=== PATIENT | female | born 1985 | race Caucasian/White ===

== ENCOUNTER 2017-08-10 14:39 | Emergency (ER) | END 2017-08-10 18:58 | disposition home or self-care (01) ==

== ENCOUNTER 2018-06-29 09:13 | Inpatient (IN) | payer MEDICAID ==
[~2018-06-29] VITALS: Ht 165.1 cm; Wt 99.1 kg
[~2018-06-29 09:13] MED LIST: ACET500C5 PO; AMOX500C2 PO; AZIT250T PO; D-ME118S6 PO; NITR-58 PO; PRED20TA PO; PROM6.25 PO
[2018-06-29] MEDS ORDERED: ONDANSETRON 4 MG INJ IV STA ×2 (10:45→15:48)
[2018-06-29] MEDS ORDERED: SOD CHLORIDE 0.9% 1,000 ML IV STA ×2 (10:45→15:48)
--- NOTE | 2018-06-29 11:26 | ERD ---
ER Documentation Chief Complaint Chief Complaint ABD PAIN, N/V AT HOME, 13 WKS PG, NO VB HPI 32-year-old female in her 13th week of presents with history of lower back pain, lower abdominal pain bilaterally, nausea, and vomiting for the last 2 days. In addition she states she is been having some fevers and chills. Vomitus is described as nonbilious and nonbloody. States that she has been having urinary frequency but denies any diarrhea, chest pain, shortness of breath, dysuria, hematuria. Denies any treatments. Allergic to morphine. LMP Mar 25. ROS All systems reviewed and are negative except as per history of present illness. Medications Home Meds Active Scripts Nitrofurantoin Monohyd Macrocr* (Macrobid*) 100 Mg Capsr, 100 MG PO BID for 7 Days, CAP Prov:AZIZA PONCE PA-C 08/10/17 Acetaminophen* (Tylophen*) 500 Mg Capsule, 1 CAP PO Q6H PRN for PAIN AND OR ELEVATED TEMP, #20 CAP Prov:AZIZA PONCE PA-C 08/10/17 Dextromethorphan Hb-Promethazine Hcl (Promethazine DM Syrup) 180 Ml Syrup, 5 ML PO Q6H PRN for COUGH, #6 OZ Prov:FRANCY ESTRELLA MD 04/28/15 Prednisone* (Prednisone*) 20 Mg Tab, 40 MG PO DAILY for 4 Days, TAB Prov:FRANCY ESTRELLA MD 04/28/15 Azithromycin* (Zithromax*) 250 Mg Tablet, 250 MG PO .ZPACK DIRECTED, #6 TAB TAKE 500 MG (2 TABS) THE FIRST DAY THEN 250 MG (1 TAB) DAYS 2-5 Prov:FRANCY ESTRELLA MD 04/28/15 Prednisone* (Prednisone*) 20 Mg Tab, 40 MG PO DAILY, #6 TAB Prov:SALOMON VALLECILLO DO 03/16/15 Amoxicillin* (Amoxicillin*) 500 Mg Cap, 500 MG PO Q8, #30 CAP Prov:SALOMON VALLECILLO DO 03/16/15 Promethazine w/Codeine* (Phenergan w/Codeine* Syrup) 5 Ml Syrup, 5 ML PO Q4H PRN for COUGH, #120 ML Prov:SALOMON VALLECILLO DO 03/16/15 Allergies Allergies: Coded Allergies: morphine (Verified Allergy, Intermediate, itching, 06/29/18) PMhx/Soc History of Surgery: Yes (C-sections) Anesthesia Reaction: No Hx Neurological Disorder: No Hx Respiratory Disorders: No (ASTHMA ) Hx Cardiac Disorders: No Hx Psychiatric Problems: No Hx Miscellaneous Medical Probl: Yes (Miscarraige) Hx Alcohol Use: No Hx Substance Use: No Hx Tobacco Use: No FmHx Family History: No diabetes, No coronary disease, No other Physical Exam Vitals Vital Signs Date Temp Pulse Resp B/P (MAP) Pulse Ox O2 O2 Flow FiO2 Time Delivery Rate 06/29/18 98.2 102 18 119/60 100 Room Air 17:36 (79) 06/29/18 99.7 106 17 126/81 100 09:15 (96) Physical Exam Const: No acute distress Head: Atraumatic Eyes: Normal Conjunctiva ENT: Normal External Ears, Nose and Mouth. Neck: Full range of motion. No meningismus. Resp: Clear to auscultation bilaterally Cardio: Regular rate and rhythm, no murmurs Abd: Lower right quadrant tenderness as well as upper right quadrant tenderness. Patient able to jump up and down on exam. Skin: No petechiae or rashes Back: No midline or flank tenderness Ext: No cyanosis, or edema Neur: Awake and alert Psych: Normal Mood and Affect Result Diagram: 06/29/18 1105 06/29/18 1158 Results 24 hrs Laboratory Tests Test 06/29/18 11:00 06/29/18 11:05 06/29/18 11:58 Urine Color YELLOW Urine Clarity CLOUDY Urine pH 7.0 Urine Specific [place] 1.014 Urine Ketones 1+ mg/dL Urine Nitrite POSITIVE mg/dL Urine Bilirubin NEGATIVE mg/dL Urine Urobilinogen NEGATIVE mg/dL Urine Leukocyte Esterase 3+ Jose/ul Urine Microscopic RBC 75 /HPF Urine Microscopic WBC > 182 /HPF Urine Squamous MODERATE /HPF Epithelial Cells Urine Bacteria FEW /HPF Urine Mucus MANY /HPF Urine Hemoglobin 2+ mg/dL Urine Glucose NEGATIVE mg/dL Urine Total Protein 2+ mg/dl White Blood Count 9.8 10^3/ul Red Blood Count 4.46 10^6/ul Hemoglobin 12.2 g/dl Hematocrit 38.0 % Mean Corpuscular Volume 85.2 fl Mean Corpuscular Hemoglobin 27.4 pg Mean Corpuscular 32.1 g/dl Hemoglobin Concent Red Cell Distribution Width 14.6 % Platelet Count 185 10^3/UL Mean Platelet Volume 11.6 fl Immature Granulocytes % 0.400 % Neutrophils % 86.9 % Lymphocytes % 7.7 % Monocytes % 4.9 % Eosinophils % 0.0 % Basophils % 0.1 % Nucleated Red Blood Cells % 0.0 /100WBC Immature Granulocytes # 0.040 10^3/ul Neutrophils # 8.5 10^3/ul Lymphocytes # 0.8 10^3/ul Monocytes # 0.5 10^3/ul Eosinophils # 0.0 10^3/ul Basophils # 0.0 10^3/ul Nucleated Red Blood Cells # 0.0 10^3/ul Sodium Level 140 mmol/L Potassium Level 3.9 mmol/L Chloride Level 107 mmol/L Carbon Dioxide Level 22 mmol/L Anion Gap 11 Blood Urea Nitrogen 6 mg/dl Creatinine 0.51 mg/dl Est Glomerular Filtrat > 60 mL/min Rate mL/min Glucose Level 108 mg/dl Calcium Level 9.2 mg/dl Total Bilirubin 0.3 mg/dl Direct Bilirubin 0.00 mg/dl Indirect Bilirubin 0.3 mg/dl Aspartate Amino 16 IU/L Transf (AST/SGOT) Alanine 8 IU/L Aminotransferase (ALT/SGPT) Alkaline Phosphatase 86 IU/L Total Protein 7.3 g/dl Albumin 3.7 g/dl Globulin 3.60 g/dl Albumin/Globulin Ratio 1.02 Lipase 40 U/L Beta HCG, Quantitative 36629.0 mIU/ml Current Medications Medications Dose Sig/[place] Start Time Status Last (Trade) Ordered Route PRN Stop Time Admin Dose Reason Admin Sodium 1,000 ml @ Q1H STAT 06/29/18 DC 06/29/18 Chloride 1,000 mls/hr IV 10:45 06/29/18 11:04 11:44 Ondansetron 4 mg ONCE STAT 06/29/18 DC 06/29/18 HCl (Zofran IV 10:45 06/29/18 11:05 Inj) 10:49 1,000 mg ONCE STAT 06/29/18 DC 06/29/18 Acetaminophen PO 11:57 06/29/18 12:11 (Tylenol 11:59 Tab) Ceftriaxone 1 gm ONCE ONCE 06/29/18 DC Sodium IVPB 15:00 06/29/18 (Rocephin) 15:00 Ceftriaxone 50 ml @ ONCE ONCE 06/29/18 DC 06/29/18 Sodium 100 mls/hr IVPB 15:00 06/29/18 15:04 15:29 Ondansetron 4 mg ONCE STAT 06/29/18 DC 06/29/18 HCl (Zofran IV 15:48 06/29/18 16:00 Inj) 15:55 Sodium 1,000 ml @ Q1H STAT 06/29/18 DC 06/29/18 Chloride 1,000 mls/hr IV 15:48 06/29/18 15:59 16:47 0.5 mg ONCE STAT 06/29/18 DC 06/29/18 Hydromorphone IV 16:00 06/29/18 16:12 HCl 16:08 (Dilaudid) Sodium 1,000 ml @ [id number] IV 06/29/18 06/29/18 Chloride 80 mls/hr 18:18 06/30/18 21:12 06:47 Procedures/MDM 32-year-old female in her 13th week of presents with history of lower back pain, lower abdominal pain bilaterally, nausea, and vomiting for the last 2 days. In addition she states she is been having some fevers and chills. Vomitus is described as nonbilious and nonbloody. States that she has been having urinary frequency denies any diarrhea, chest pain, shortness of breath, dysuria, hematuria. Denies any treatments. Allergic to morphine. Labs ordered and patient is positive for UTI. Patient also had vomiting, and acute CVA tenderness as well as subjective fevers which raise my suspicion for pyelonephritis. I spoke to the laborist, Dr Rodrigez who stated the patient would need to be admitted because of her status. I then spoke to Dr. Hope and he admitted the patient. Patient was given 1 g of ceftriaxone as well as medication for pain and IV fluids. Patient was complaining of acute back pain as well as vomiting so she was given hydromorphone and Zofran IV. 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 To note I spoke with Dr. Rodrigez again at approximately 9:30 PM to let her know the patient was admitted. She stated that she is coming over to see her. Departure Diagnosis: Primary Impression: Pyelonephritis affecting in second trimester Condition: Serious MIKHAILADAN CUMMINGS Jun 29, 2018 11:26
[2018-06-29] MEDS ORDERED: ACETAMINOPHEN 500 MG TAB PO STA (11:57)
[2018-06-29] MEDS ORDERED: CEFTRIAXONE 1 GM/50 ML (PMX) 50 ML IVPB ONE (15:00)
[2018-06-29] MEDS ORDERED: CEFTRIAXONE 1 GM INJ IVPB ONE (15:00)
[2018-06-29] MEDS ORDERED: HYDROmorphONE 0.5 MG/0.5 ML SYG IV STA (16:00)
[2018-06-29] MEDS ORDERED: SOD CHLORIDE 0.9% 1,000 ML IV SCH (18:18)
[2018-06-29] MEDS ORDERED: ONDANSETRON 4 MG INJ IV PRN ×2 (18:30→19:00)
[2018-06-29] MEDS ORDERED: ACETAMINOPHEN 325 MG TAB PO PRN (18:30)
--- NOTE | 2018-06-29 18:37 | HP ---
Date/Time of Note Date/Time of Note DATE: 06/29/18 TIME: 18:34 Assessment/Plan VTE Prophylaxis Pharmacological prophylaxis: heparin Lines/Catheters IV Catheter Type (from Nrs): Saline Lock Assessment/Plan Hospital Course 32 yo female 14 weeks gravid who presents with pyelonephritis - Continue ceftriaxone - Await urine culture - Analgesia : - OB to consult Result Diagram: 06/29/18 1105 06/29/18 1158 Results 24hrs Laboratory Tests Test 06/29/18 11:00 06/29/18 11:05 06/29/18 11:58 Urine Color YELLOW Urine Clarity CLOUDY A Urine pH 7.0 Urine Specific [place] 1.014 Urine Ketones 1+ H Urine Nitrite POSITIVE A Urine Bilirubin NEGATIVE Urine Urobilinogen NEGATIVE Urine Leukocyte Esterase 3+ H Urine Microscopic RBC 75 H Urine Microscopic WBC > 182 H Urine Squamous Epithelial Cells MODERATE Urine Bacteria FEW A Urine Mucus MANY A Urine Hemoglobin 2+ H Urine Glucose NEGATIVE Urine Total Protein 2+ H White Blood Count 9.8 Red Blood Count 4.46 Hemoglobin 12.2 Hematocrit 38.0 Mean Corpuscular Volume 85.2 Mean Corpuscular Hemoglobin 27.4 L Mean Corpuscular Hemoglobin Concent 32.1 Red Cell Distribution Width 14.6 H Platelet Count 185 Mean Platelet Volume 11.6 H Immature Granulocytes % 0.400 Neutrophils % 86.9 H Lymphocytes % 7.7 L Monocytes % 4.9 Eosinophils % 0.0 Basophils % 0.1 Nucleated Red Blood Cells % 0.0 Immature Granulocytes # 0.040 H Neutrophils # 8.5 H Lymphocytes # 0.8 Monocytes # 0.5 Eosinophils # 0.0 Basophils # 0.0 Nucleated Red Blood Cells # 0.0 Sodium Level 140 Potassium Level 3.9 Chloride Level 107 Carbon Dioxide Level 22 Anion Gap 11 Blood Urea Nitrogen 6 L Creatinine 0.51 Est Glomerular Filtrat Rate mL/min > 60 Glucose Level 108 Calcium Level 9.2 Total Bilirubin 0.3 Direct Bilirubin 0.00 Indirect Bilirubin 0.3 Aspartate Amino Transf (AST/SGOT) 16 Alanine Aminotransferase (ALT/SGPT) 8 L Alkaline Phosphatase 86 Total Protein 7.3 Albumin 3.7 Globulin 3.60 H Albumin/Globulin Ratio 1.02 Lipase 40 Beta HCG, Quantitative 93439.0 HPI/ROS Admit Date/Time Admit Date/Time Hx of Present Illness 32 yo female without PMH currently 14 weeks presents with fever, flank/pelvic pain and nausea Symptoms started a couple days ago. Has had fevers and chills. Unable to tolerate PO. Imaging in ED reveals IUP. UA suggestive of UTI. Has been given ceftriaxone, fluids, and analgesics and feels a bit better ROS Constitutional: no complaints, improved Eyes: no complaints ENT: no complaints Respiratory: no complaints Cardiovascular: no complaints Gastrointestinal: no complaints Genitourinary: no complaints Musculoskeletal: no complaints Skin: no complaints Neurologic: no complaints Endocrine: no complaints Lymphatic: no complaints Psychological: no complaints, nl mood/affect Immunologic: no complaints PMH/Family/Social Past Medical History Medical History: no pertinent history Medications Current Medications Sodium Chloride 1,000 ml @ 80 mls/hr [id number] IV ; Start 06/29/18 at 18:18; Stop 06/30/18 at 06:47 Ondansetron HCl (Zofran Inj) 4 mg BRIDGE ORDER PRN IV NAUSEA/VOMITING; Start 06/29/18 at 18:30; Stop 06/30/18 at 18:29 Acetaminophen (Tylenol Tab) 650 mg ER BRIDGE PRN PO .MILD PAIN 1-3 OR TEMP; Start 06/29/18 at 18:30; Stop 06/30/18 at 18:29 Coded Allergies: morphine (Verified Allergy, Intermediate, itching, 06/29/18) Past Surgical History Past Surgical Hx: no surgical history Family History Significant Family History: no pertinent family hx Social History Alcohol Use: none Smoking Status: Never smoker Drug Use: none Exam/Review of Systems Vital Signs Vitals Vital Signs Date Temp Pulse Resp B/P (MAP) Pulse Ox O2 O2 Flow FiO2 Time Delivery Rate 06/29/18 98.2 102 18 119/60 100 Room Air 17:36 (79) Exam Exam Pleasant No distress AOX3 RRR CTAB Gravid belly CVA tenderness present MACY DE LA CRUZ MD Jun 29, 2018 18:37
[2018-06-29] MEDS ORDERED: HYDROmorphONE 0.5 MG/0.5 ML SYG IV PRN (19:00)
[2018-06-29] MEDS ORDERED: NACL 0.9% 3 ML SYG IV SCH (19:00)
[2018-06-29 20:12] VITALS: BP 109/55; PULSE 98; RESP 18
[2018-06-29 20:15] VITALS: Ht 165.1 cm; Wt 99.1 kg
--- NOTE | 2018-06-29 23:17 | HP ---
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) Other Concerns: 32-year-old with at 14 weeks stated date December 30, 2018 by patient, and care at [facility] presented with complaint of nausea and vomiting, low back pain, fever today. Patient denies any leaking of fluid, vaginal bleeding decreased movement or contractions. Noted to have evidence of pyelonephritis with positive CVA tenderness in the right side and for that reason patient was admitted for IV antibiotics with diagnosis of pyelonephritis. Patient reports improvement of her nausea since she was admitted she was admitted by medicine service and started on ceftriaxone for treatment of pyelonephritis. OB was consulted.. Past Family/Social History * Past Medical, Surgical, Family and Obstetric Histories reviewed from chart. OB Admission Exam Vital Signs Vital Signs Vital Signs Date Temp Pulse Resp B/P (MAP) Pulse Ox O2 O2 Flow FiO2 Time Delivery Rate 06/29/18 99.8 22:21 06/29/18 98 18 109/55 96 20:12 (73) 06/29/18 Room Air 19:55 Physical Exam HEENT: WNL Heart: Other (Tachycardia) Lungs: Clear Abdomen: WNL Extremities: Normal Reflexes: Normal Cervical Dilatation: None Last 72 hourBlood Glucose ROCEDURE: US OB AND ULTRASOUND CERVIX. CLINICAL INDICATION: Size and dates , abdominal pain TECHNIQUE: Multiple sonographic images of the pelvis and gravid uterus were obtained. The images were reviewed on a PACS workstation. COMPARISON: No prior studies are available for comparison. FINDINGS: Cervix: Length: 4.3 cm. Closed and competent. Gestation: Single live intrauterine gestation. Cardiac activity: 165 beats per minute. Presentation: Vertex. Placenta: Location: Anterior. Appearance: No previa or abruption. MVP= 2.6 cm Measurements: BPD = 2.4 cm, 14 weeks and 0 days HC = 9.4 cm, 14 weeks and 2 days AC = 7.7 cm, 14 weeks and 1 day FL = 1.9 cm, 15 weeks and 4 days Gestational Age: AUA estimated gestational age: 14 weeks 4 days LMP estimated gestational age: 13 weeks 5 days AUA estimated date of delivery: 12/24/18 The EFW = 106 g, 96%ile based on LMP age. The ovaries are normal in size echogenicity with normal Doppler flow. The right ovary measures 3.3 x 1.4 x 1.9 cm. There is a small 1.3 cm simple cyst. The left ovary measures 3.7 x 1.7 x 2.4 cm. RPTAT: AA IMPRESSION: Single live intrauterine gestation of approximately 14 weeks and 4 days based on ultrasound measurements. .Marquis Hou MD, MD Date Time Electronically viewed and signed by .Marquis Hou MD, MD on 06/29/2018 12:02 .S/ CC: ADAN GRADY [phone] PROCEDURE: Ultrasound right lower quadrant CLINICAL INDICATION: Right lower quadrant pain TECHNIQUE: Sonographic evaluation of the right lower quadrant was performed. Rodriguez scale and color imaging was utilized. Compression technique was utilized as well. Images were reviewed on a high-resolution PACS workstation. COMPARISON: None available FINDINGS: No lymphadenopathy is seen. No free fluid could be identified. Specifically, no blind ending tubular structure is seen. The appendix is not definitely visualized. IMPRESSION: Appendix not definitely visualized. Therefore, the diagnosis of appendicitis cannot be confidently included nor excluded. RPTAT: JASON ROCEDURE: US Abdomen. CLINICAL INDICATION: abdominal pain TECHNIQUE: Multiple real-time images were acquired of the patient's right upper quadrant abdomen and retroperitoneum utilizing a high resolution transducer. COMPARISON: None FINDINGS: The liver demonstrates normal echogenicity. The liver is normal in size and no focal solid lesions are seen. The liver measures 16 cm in length. The portal vein is patent with normal direction of flow. No intrahepatic biliary dilatation is seen. No gallstones are identified within the gallbladder. There is no pericholecystic fluid or gallbladder wall thickening. The common bile duct measures 3 mm in maximal dimension. The visualized portions of the pancreas are unremarkable. The tail of the pancreas is not seen. No free fluid is identified. The right kidney is normal in size, and demonstrate normal echogenicity and cortical thickness. The right kidney measures 12 cm in long dimension. There is no evidence of hydronephrosis. There are no kidney stones. RPTAT: AA IMPRESSION: Unremarkable right upper quadrant abdominal ultrasound. Last 72 hours Lab Results CBC & BMP 06/29/18 11:05 06/29/18 11:58 Liver Function Test 06/29/18 11:58 Alanine Aminotransferase (ALT/SGPT) 8 L Albumin 3.7 Alkaline Phosphatase 86 Aspartate Amino Transf (AST/SGOT) 16 Direct Bilirubin 0.00 Total Protein 7.3 OB Assessment/Plan Other Assessment: IUP at 13 weeks and 5 days by todays' ultrasound Nausea, fever, RT CVA tenderness, UTI, Clinical picture consistent with pyelonephritis Patient has been started on IV antibiotics No other obstetrical issue at this time Continue IV hydration Continue IV antibiotics Recommended IV fluid 200 cc/h Follow-up of the urine culture result Pain control Repeat CBC tomorrow heart tones daily by labor and delivery. Please call our in labor and delivery for heart tones daily We will follow-up with the patient while in-house Discussed with the patient needs to continue full course of antibiotics for 14 days after discharge from the hospital, with prophylactic treatment for the rest of the until 6 weeks Patient verbalized understanding WINSTON HYATT MD Jun 29, 2018 23:17
[2018-06-30 02:00] VITALS: BP 103/55; PULSE 78; RESP 17
[2018-06-30] MEDS: ACETAMINOPHEN 325 MG TAB PO PRN ×3 (04:53→18:17)
[2018-06-30 07:25] VITALS: BP 107/58; PULSE 81; RESP 18
[2018-06-30] MEDS: CEFTRIAXONE 1 GM/50 ML (PMX) 50 ML IVPB SCH (08:01)
--- NOTE | 2018-06-30 12:25 | PN ---
Date/Time of Note Date/Time of Note DATE: 06/30/18 TIME: 12:24 Assessment/Plan VTE Prophylaxis SCD applied (from Nsg): Yes Pharmacological prophylaxis: heparin Lines/Catheters IV Catheter Type (from Nrsg): Peripheral IV Urinary Cath still in place: No Assessment/Plan Hospital Course 32 yo female 14 weeks gravid who presents with pyelonephritis - Continue ceftriaxone - Await urine culture - Analgesia : - OB to consult Result Diagram: 06/29/18 1105 06/29/18 1158 Results 24hrs Laboratory Tests Test 06/30/18 04:45 Hemoglobin A1c 5.4 Subjective 24 Hr Interval Summary Free Text/Dictation Some headache Flank pain improving Offered discharge, prefers to stay Exam/Review of Systems Exam Vitals Vital Signs Date Temp Pulse Resp B/P (MAP) Pulse Ox O2 O2 Flow FiO2 Time Delivery Rate 06/30/18 97.9 81 18 107/58 99 Room Air 07:25 (74) Intake and Output 06/29/18 06/29/18 06/30/18 1515:00 23:00 07:00 IntakeIntake Total 100 ml 320 ml BalanceBalance 100 ml 320 ml Constitutional: alert, oriented, well developed Psych: no complaints, nl mood/affect Head: normocephalic, atraumatic Eyes: nl conjunctiva, EOMI, nl lids, nl sclera, PERRL ENMT: nl external ears & nose, nl lips & teeth, nl nasal mucosa & septum Neck: supple, non-tender Respiratory: clear to auscultation, normal air movement Cardiovascular: regular rate and rhythm, nl pulses Gastrointestinal: soft, nl liver, spleen, non-tender Musculoskeletal: nl extremities to inspection, nl gait and stance Extremities: normal pulses Neurological: INCLUSION PARAEDUCATOR II-XII intact, nl mental status, nl speech, nl strength Skin: nl turgor; No rash or lesions Lymph: nl lymph nodes Results Results 24hrs Laboratory Tests Test 06/30/18 04:45 Hemoglobin A1c 5.4 Medications Medication Current Medications Ondansetron HCl (Zofran Inj) 4 mg BRIDGE ORDER PRN IV NAUSEA/VOMITING; Start 06/29/18 at 18:30; Stop 06/30/18 at 18:29 Acetaminophen (Tylenol Tab) 650 mg ER BRIDGE PRN PO .MILD PAIN 1-3 OR TEMP Last administered on 06/29/18at 21:08; Admin Dose 650 MG; Start 06/29/18 at 18:30; Stop 06/30/18 at 18:29 IV Flush (NS 3 ml) 3 ml PER PROTOCOL IV ; Start 06/29/18 at 19:00 Hydromorphone HCl (Dilaudid) 0.5 mg Q4H PRN IV .SEVERE PAIN 7-10 Last administered on 06/29/18 18:57; Admin Dose 0.5 MG; Start 06/29/18 at 19:00 Ceftriaxone Sodium 50 ml @ 100 mls/hr Q24H IVPB Last administered on 06/30/18 08:01; Admin Dose 100 MLS/HR; Start 06/30/18 at 08:00 Ondansetron HCl (Zofran Inj) 4 mg Q6H PRN IV NAUSEA AND/OR VOMITING; Start 06/29/18 at 19:00 Acetaminophen (Tylenol Tab) 650 mg Q6H PRN PO MILD PAIN(1-3)OR ELEVATED TEMP Last administered on 06/30/18 04:53; Admin Dose 650 MG; Start 06/30/18 at 03:30 MACY DE LA CRUZ MD Jun 30, 2018 12:25
[2018-06-30 14:20] VITALS: BP 108/70; PULSE 79; RESP 16
--- NOTE | 2018-06-30 18:57 | QN ---
Documentation Comment Patient reports mild improvement of her low back pain. Reports to still feeling some cramps in the lower abdomen. Denies any leaking of fluid, vaginal bleeding. Feels sweating. Complaint of headache. Denies any other symptoms. General appearance: Alert and oriented x4 does not appear to be in acute distress Abdomen: Soft, gravid, fundal height consider gestational age. Mild tenderness no guarding no rigidity There is mild to moderate CVA tenderness distally on the right side Laboratory Tests Test 06/30/18 04:45 Hemoglobin A1c 5.4 Assessment IUP at 14+ weeks Right flank pain and tenderness, fever, UTI Exam consistent with pyelonephritis On IV antibiotics, receiving ceftriaxone, Urine culture positive for Gram pos rods Afebrile Still moderately symptomatic Continue IV antibiotics until 24 hours after clinical improvement Discussed with the patient needs to finish the full course of antibiotics for 14 days after discharge from the hospital and then be on prophylactic treatment once a day for the rest of the including 6 is Patient verbalized understanding L&D nurses to check the heart tones daily We will continue to monitor WINSTON HYATT MD Jun 30, 2018 18:57
[2018-06-30 20:01] VITALS: BP 105/56; PULSE 87; RESP 18
[2018-07-01 07:30] VITALS: BP 100/51; PULSE 78; RESP 18
[2018-07-01] MEDS: CEFTRIAXONE 1 GM/50 ML (PMX) 50 ML IVPB SCH (08:25)
--- NOTE | 2018-07-01 13:22 | QN ---
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
[2018-07-01 14:31] VITALS: BP 108/54; PULSE 67; RESP 16
[2018-07-01] MEDS ORDERED: CEPH500C PO (15:26)
--- NOTE | 2018-07-01 15:26 | PDOCDIS ---
Discharge Instructions DIAGNOSIS Discharge Diagnosis UTI CONDITION [id number] Patient Condition: [id number] Stable FOLLOW UP/APPOINTMENTS Follow-up Plan See your sand slinger operator doctor next week. Return to the hosptial if you have any concerning MACY Hudson MD Jul 01, 2018 15:26
--- NOTE | 2018-07-01 15:27 | DS ---
Date/Time of Note Date/Time of Note DATE: 07/01/18 TIME: 15:26 Discharge Summary Admission/Discharge Info Admit Date/Time Jun 29, 2018 at 18:19 Discharge Date/Time Discharge Diagnosis UTI Patient Condition: Stable Hx of Present Illness 32 yo female without PMH currently 14 weeks presents with fever, flank/pelvic pain and nausea Symptoms started a couple days ago. Has had fevers and chills. Unable to tolerate PO. Imaging in ED reveals IUP. UA suggestive of UTI. Has been given ceftriaxone, fluids, and analgesics and feels a bit better Hospital Course 32 yo female 14 weeks gravid who presents with pyelonephritis Urine culture grew rojas sensitive E Coli She was treated with IV ceftriaxone, then discharged on cephalexin US showed normal IUP She will follow up with her computer security manager doctor Home Meds Active Scripts Nitrofurantoin Monohyd Macrocr* (Macrobid*) 100 Mg Capsr, 100 MG PO BID for 7 Days, CAP Prov:AZIZA PONCE PA-C 08/10/17 Acetaminophen* (Tylophen*) 500 Mg Capsule, 1 CAP PO Q6H PRN for PAIN AND OR ELEVATED TEMP, #20 CAP Prov:AZIZA PONCE PA-C 08/10/17 Dextromethorphan Hb-Promethazine Hcl (Promethazine DM Syrup) 180 Ml Syrup, 5 ML PO Q6H PRN for COUGH, #6 OZ Prov:FRANCY ESTRELLA MD 04/28/15 Prednisone* (Prednisone*) 20 Mg Tab, 40 MG PO DAILY for 4 Days, TAB Prov:FRANCY ESTRELLA MD 04/28/15 Azithromycin* (Zithromax*) 250 Mg Tablet, 250 MG PO .ZPACK DIRECTED, #6 TAB TAKE 500 MG (2 TABS) THE FIRST DAY THEN 250 MG (1 TAB) DAYS 2-5 Prov:FRANCY ESTRELLA MD 04/28/15 Prednisone* (Prednisone*) 20 Mg Tab, 40 MG PO DAILY, #6 TAB Prov:SALOMON VALLECILLO DO 03/16/15 Amoxicillin* (Amoxicillin*) 500 Mg Cap, 500 MG PO Q8, #30 CAP Prov:SALOMON VALLECILLO DO 03/16/15 Promethazine w/Codeine* (Phenergan w/Codeine* Syrup) 5 Ml Syrup, 5 ML PO Q4H PRN for COUGH, #120 ML Prov:SALOMON VALLECILLO DO 03/16/15 Follow-up Plan See your computer security manager doctor next week. Return to the hosptial if you have any concerning sytoms Primary Care Provider Not On Staff Doctor MACY DE LA CRUZ MD Jul 01, 2018 15:27
== END 2018-07-01 17:15 | disposition home or self-care (01) | DRG 833 ==
LOC: FTE 09:13 → PP2 18:19 → EDBEDREQ 18:27 → EDBEDREQTM 18:35
PROVIDERS: ADMIT Internal Medicine; ATTEND Internal Medicine
DX: O23.41 Unspecified infection of urinary tract in pregnancy, first trimester (principal); O23.01 Infections of kidney in pregnancy, first trimester; Z3A.14 14 weeks gestation of pregnancy
CPT/HCPCS: 76705; 76805; 80053; 81001; 83036; 83690; 84702; 85025; 87086; 87400; J0696; J1170; J2405; J7030

== ENCOUNTER 2018-07-25 09:12 | Emergency (ER) | payer MEDICAID ==
[~2018-07-25] VITALS: Ht 162.6 cm; Wt 93.3 kg
[~2018-07-25 09:12] MED LIST changes: -ACET500C5 PO; -AMOX500C2 PO; -AZIT250T PO; +CEPH500C PO; -D-ME118S6 PO; -NITR-58 PO; -PRED20TA PO; -PROM6.25 PO
[2018-07-25 09:25] VITALS: BP 133/62; PULSE 98; RESP 18; Ht 162.6 cm; Wt 93.3 kg
[2018-07-25] MEDS ORDERED: ACET500C5 PO (10:48)
[2018-07-25] MEDS ORDERED: AMOX1TAB10 PO (10:48)
[2018-07-25] MEDS ORDERED: ONDA4TAB14 PO (10:48)
[2018-07-25] MEDS ORDERED: OSEL75CA23 PO (10:48)
--- NOTE | 2018-07-25 14:00 | ERD ---
ER Documentation Chief Complaint Chief Complaint fever , chills , sore throat x 2 days , 19 weeks preg HPI 32-year-old female presenting with fever chills and sore throat times 2 days. Patient is 19 weeks . Patient has had no vomiting but does have a cough. No runny nose. Generalized headache. Took Tylenol 8 hours prior to my evaluation. Denies medical problems. Allergic to morphine. Surgical history . Social history denies ROS All systems reviewed and are negative except as per history of present illness. Medications Home Meds Active Scripts Amoxicillin/Potassium Clav (Amox-Clav 875-125 mg Tablet) 875-125 mg Tab, 1 TAB PO BID for 7 Days, #14 TAB Prov:GEMMA MCCOLLUM PA-C 07/25/18 Acetaminophen* (Tylophen*) 500 Mg Capsule, 1 CAP PO Q6H PRN for PAIN AND OR ELEVATED TEMP, #20 CAP Prov:GEMMA MCCOLLUM PA-C 07/25/18 Ondansetron (Ondansetron Odt) 4 Mg Tab.rapdis, 4 MG PO Q6H PRN for NAUSEA AND/OR VOMITING, #10 TAB Prov:GEMMA MCCOLLUM PA-C 07/25/18 Oseltamivir Phosphate* (Tamiflu*) 75 Mg Capsule, 75 MG PO BID for 5 Days, CAP Prov:GEMMA MCCOLLUM PA-C 07/25/18 Cephalexin* (Cephalexin*) 500 Mg Capsule, 500 MG PO Q12 for 5 Days, #10 CAP Prov:MACY DE LA CRUZ MD 07/01/18 Allergies Allergies: Coded Allergies: morphine (Verified Allergy, Intermediate, itching, 06/29/18) PMhx/Soc History of Surgery: Yes (CS 2010, 2012) Anesthesia Reaction: No Hx Neurological Disorder: No Hx Respiratory Disorders: No Hx Cardiac Disorders: No Hx Psychiatric Problems: No Hx Miscellaneous Medical Probl: No Hx Alcohol Use: Yes (occasionally) Hx Substance Use: No Hx Tobacco Use: No FmHx Family History: No diabetes, No coronary disease, No other Physical Exam Vitals Vital Signs Date Temp Pulse Resp B/P (MAP) Pulse Ox O2 O2 Flow FiO2 Time Delivery Rate 07/25/18 98.2 98 18 133/62 98 09:25 (85) Physical Exam GENERAL: The patient is well-appearing, well-nourished, in no acute distress HEENT: Atraumatic. Conjunctivae are pink. Pupils equal, round, and reactive to light. There is no scleral icterus. Tympanic membranes clear bilaterally. Oropharynx clear. NECK: C-spine is soft and supple. There is no meningismus. There is no cervical lymphadenopathy. HEART: Regular rate and rhythm. No murmurs, clicks, rubs or gallops. ABDOMEN:Soft, nontender and nondistended. Good bowel sounds. No rebound or guarding. No gross peritonitis. No gross organomegaly or masses. Results 24 hrs Laboratory Tests Test 07/25/18 09:58 Bedside Urine pH (LAB) 7.0 Bedside Urine Protein (LAB) Trace Bedside Urine Glucose (UA) Negative Bedside Urine Ketones (LAB) Negative Bedside Urine Blood Negative Bedside Urine Nitrite (LAB) Negative Bedside Urine Leukocyte Esterase (L Negative Procedures/MDM ER course: Influenza and strep swab positive. MDM: 32-year-old female presenting with flu. Patient also has strep. Patient will be discharged with supportive medications. Patient is told symptoms change or worsen to return immediately to the ER. I will treat patient with Tamiflu given she is . All questions answered at discharge Departure Diagnosis: Primary Impression: Strep throat Additional Impression: Influenza Condition: Stable Patient Instructions: Strep Throat, Influenza (Adult) Referrals: [facility] YOU HAVE RECEIVED A MEDICAL SCREENING EXAM AND THE RESULTS INDICATE THAT YOU DO NOT HAVE A CONDITION THAT REQUIRES URGENT TREATMENT IN THE EMERGENCY DEPARTMENT. FURTHER EVALUATION AND TREATMENT OF YOUR CONDITION CAN WAIT UNTIL YOU ARE SEEN IN YOUR DOCTORS OFFICE WITHIN THE NEXT 1-2 DAYS. IT IS YOUR RESPONSIBILITY TO MAKE AN APPOINTMENT FOR FOLOW-UP CARE. IF YOU HAVE A PRIMARY DOCTOR --you should call your primary doctor and schedule an appointment IF YOU DO NOT HAVE A PRIMARY DOCTOR YOU CAN CALL OUR PHYSICIAN REFERRAL HOTLINE AT IF YOU CAN NOT AFFORD TO SEE A PHYSICIAN YOU CAN CHOSE FROM THE FOLLOWING [facility] [address] [facility] [address] [facility] [address] [facility] [address] [facility]. [facility] [address] [facility]. [facility] [address] Additional Instructions: FOLLOW UP WITH YOUR PRIMARY CARE PHYSICIAN TOMORROW.Return to this facility if you are not improving as expected. GEMMA MCCOLLUM PA-C Jul 25, 2018 14:00
== END 2018-07-25 11:06 | disposition home or self-care (01) ==
LOC: FTE 09:12
DX: O99.512 Diseases of the respiratory system complicating pregnancy, second trimester (principal); O98.512 Other viral diseases complicating pregnancy, second trimester; J02.0 Streptococcal pharyngitis; R50.9 Fever, unspecified; Z3A.16 16 weeks gestation of pregnancy
CPT/HCPCS: 81003; 87086; 87400; 87880; Z7502; 99283

== ENCOUNTER 2018-12-01 13:29 | Outpatient (CLI) | payer MEDICAID ==
[~2018-12-01] VITALS: Ht 157.5 cm; Wt 99.2 kg
[~2018-12-01 13:29] MED LIST changes: +ACET500C5 PO; +AMOX1TAB10 PO; +ONDA4TAB14 PO; +OSEL75CA23 PO
[2018-12-01 13:53] VITALS: Ht 157.5 cm; Wt 99.2 kg
--- NOTE | 2018-12-01 18:10 | TRIAGE ---
OB Triage Datetime Report Generated by CPN: 12/01/2018 18:10 Datetime: 12/01/2018 18:00 Vaginal Bleeding: None Datetime: 12/01/2018 15:59 Vaginal Exam Dilatation (cms): 0.5 Effacement (%): 40 Station: -3 Datetime: 12/01/2018 15:28 Labor Evaluation Frequency: 0 Monitor Mode: External Heart Rate FHR Baseline Rate: 130 Monitor Mode: External US FHR Baseline Changes: No Baseline Change Variability: Moderate 6-25 bpm Accelerations: 15X15 Decelerations: None Category: Category I Pain Assessment Pain Presence: None/Denies Datetime: 12/01/2018 14:02 Labor Evaluation Frequency: 0 Monitor Mode: External Heart Rate FHR Baseline Rate: 130 Monitor Mode: External US FHR Baseline Changes: No Baseline Change Variability: Moderate 6-25 bpm Accelerations: 15X15 Decelerations: None Category: Category I Pain Assessment Pain Presence: None/Denies Datetime: 12/01/2018 13:55 Time of Arrival: 12/01/2018 13:08 EGA: 36.1 Arrived By: Ambulatory Arrived From: Home Chief Complaint: cough , pelvic pressure Movement: Present Contractions: Denies/Absent Rupture of Membranes: Denies Vaginal Bleeding: None Vaginal Discharge: Denies Recent Sexual Intercouse: Denies Abdominal Trauma: Not Applicable Patient Complaints: None Time Provider Notified: 12/01/2018 15:00 Provider Notified: DR HYATT Initial Plan: NST, BPP,VE,UA,ROM PLUS Datetime: 12/01/2018 13:30 Stage of : OB Triage Assessment Type: Triage Maternal Assessment Level of Consciousness: Keenly Alert, Responsive DTR's/Clonus: DTRs 2+; No Clonus Headache: Denies Blurred Vision: No Respiratory Effort: Unlabored; Regular Rhythm; Equal Expansion Breath Sounds, Left: Clear and Equal Breath Sounds, Right: Clear and Equal Nausea/Vomiting: Denies RUQ Epigastric Pain: Denies Facial Edema: None Temperature Route: Axillary Fall Risk Assessment History of Falling: (0) No Secondary Diagnosis: (0) No Ambulatory Aid: (0) Bedrest/Nurse Assist IV Therapy: (0) No Gait: (0) Normal/Bedrest/Immobile Mental Status: (0) Oriented to Own Ability Fall Score: 0 Fall Risk Score Definition: No Risk: No action required
--- NOTE | 2018-12-01 18:32 | PN ---
Triage Information Date/Time December 01, 2018 Reason for visit: Cough pelvic pressure, sore throat Weeks of Gestation 36 weeks and 1 day /Para 5 para 2 Diabetes: none Hypertention: none Additional information 33-year-old G5, P2 with IUP at 36 weeks and 1 day presents with complaint of pelvic pressure and cough and sore throat, denies any leaking of fluid, vaginal bleeding or decreased movement. Denies any fever or chills. Reports leaking small amounts of urine with each coughing. Denies any dysuria symptom Objective Heart Rate: 130's Heart Rate Comments Category 1 Exam GA: A&O, NAD Abdomen, Soft, Gravid, Size consistent with Date NST; Cat 1 BPP: 12/01 SHAHNAZ: 9.2 cm Lungs: CTA Bilaterally CV: RRR Results/Medications Results 24 hrs Laboratory Tests Test 12/01/18 13:30 Urine Color STEVE Urine Clarity CLOUDY A Urine pH 6.0 Urine Specific [place] 1.025 Urine Ketones NEGATIVE Urine Nitrite NEGATIVE Urine Bilirubin NEGATIVE Urine Urobilinogen NEGATIVE Urine Leukocyte Esterase NEGATIVE Urine Microscopic RBC 3 Urine Microscopic WBC 5 Urine Squamous Epithelial Cells MANY A Urine Bacteria FEW A Urine Mucus MANY A Urine Hemoglobin NEGATIVE Urine Glucose NEGATIVE Urine Total Protein 1+ H Membranes Rupture NEGATIVE Imaging Results PROCEDURE: US OB biophysical profile. CLINICAL INDICATION: decreased movements, pelvic pressure TECHNIQUE: Multiple sonographic images of the pelvis were obtained. The images were reviewed on a PACS workstation. COMPARISON: No prior studies are available for comparison. FINDINGS: There is a single live intrauterine gestation. Cardiac activity is present with 156 beats per minute. There is a vertex presentation. The placenta is anterior. There is no evidence of placental abruption. SHAHNAZ = 9.2 cm. Biophysical profile: movement 2/2 tone 2/2. breathing 2/2 SHAHNAZ 2/2 Total 12/01 RPTAT: AA . IMPRESSION: Normal biophysical profile. Assessment/Plan IUP at 36 weeks and 1 day No evidence of PPROM or labor Cough, sore throat, URI symptoms. No obstetrical problem at this point testing reassuring Patient will be sent to emergency room for evaluation labor precautions kick count and follow-up within 48 hours after discharge from the hospital discussed with patient Patient verbalized understanding WINSTON HYATT MD Dec 01, 2018 18:32
== END 2018-12-01 18:00 | disposition home or self-care (01) ==
LOC: L-D 13:29 → OBT 13:29 → L-D 13:57 → OBT 18:00
PROVIDERS: ATTEND Obstetrics & Gynecology Obstetrics
DX: O26.893 Other specified pregnancy related conditions, third trimester (principal); J02.9 Acute pharyngitis, unspecified; Z3A.36 36 weeks gestation of pregnancy
CPT/HCPCS: 76818; 81001; 84112; Z7500; G0463

== ENCOUNTER 2018-12-01 18:06 | Emergency (ER) | payer MEDICAID ==
[~2018-12-01] VITALS: Ht 152.4 cm; Wt 98.1 kg
[2018-12-01 18:10] VITALS: PULSE 71; RESP 20; Ht 152.4 cm; Wt 98.1 kg
[2018-12-01 18:36] VITALS: BP 161/72
--- NOTE | 2018-12-01 23:01 | ERD ---
ER Documentation Chief Complaint Chief Complaint 36wk checked in OB. 1day c/o dry cough, st since last night HPI Patient is a 33-year-old female, G3, P2, approximately 36 weeks , presents the ER for concerns of a cough and sore throat x1 day. Patient was seen by BIOLOGICAL PLANT OPERATOR team and cleared for OB emergencies prior to arrival to the ER. Patient states she has had a dry cough and sore throat for 1 day now. Patient denies any fevers or chills. Patient denies any chest pain, shortness breath, nausea, vomiting, abdominal pain. ROS All systems reviewed and are negative except as per history of present illness. Medications Home Meds Active Scripts Amoxicillin/Potassium Clav (Amox-Clav 875-125 mg Tablet) 875-125 mg Tab, 1 TAB PO BID for 7 Days, #14 TAB Prov:GEMMA MCCOLLUM PA-C 07/25/18 Acetaminophen* (Tylophen*) 500 Mg Capsule, 1 CAP PO Q6H PRN for PAIN AND OR ELEVATED TEMP, #20 CAP Prov:GEMMA MCCOLLUM PA-C 07/25/18 Ondansetron (Ondansetron Odt) 4 Mg Tab.rapdis, 4 MG PO Q6H PRN for NAUSEA AND/OR VOMITING, #10 TAB Prov:GEMMA MCCOLLUM PA-C 07/25/18 Oseltamivir Phosphate* (Tamiflu*) 75 Mg Capsule, 75 MG PO BID for 5 Days, CAP Prov:GEMMA MCCOLLUM PA-C 07/25/18 Cephalexin* (Cephalexin*) 500 Mg Capsule, 500 MG PO Q12 for 5 Days, #10 CAP Prov:MACY DE LA CRUZ MD 07/01/18 Allergies Allergies: Coded Allergies: morphine (Verified Allergy, Intermediate, itching, 06/29/18) PMhx/Soc History of Surgery: Yes (CS 2010, 2012) Anesthesia Reaction: No Hx Neurological Disorder: No Hx Respiratory Disorders: No Hx Cardiac Disorders: No Hx Psychiatric Problems: No Hx Miscellaneous Medical Probl: No Hx Alcohol Use: Yes (occasionally) Hx Substance Use: No Hx Tobacco Use: No Physical Exam Vitals Vital Signs Date Temp Pulse Resp B/P (MAP) Pulse Ox O2 O2 Flow FiO2 Time Delivery Rate 12/01/18 161/72 18:36 (101) 12/01/18 97.3 71 20 152/66 97 18:10 (94) Physical Exam GENERAL: Well-developed, well-nourished female. Appears in no acute distress. HEAD: Normocephalic, atraumatic. No deformities or ecchymosis. EYE: Pupils equal, round, and reactive to light. EOMs intact. No conjunctival erythema. No eye discharge. ENT: External ear without any masses or tenderness. Auditory canals clear bilaterally. TM visualized bilaterally, non-erythematous, non-bulging. Nasal mucosa pink with no discharge. Oropharynx is pink without any tonsillar erythema or exudates. No uvula deviation. No kissing tonsils. NECK: Supple. No meningismus. Normal ROM of the neck. LUNG: Clear to auscultation bilaterally. No rhonchi, wheezing, rales or coarse breath sounds. HEART: Regular rate and rhythm. No murmurs, rubs or gallops. EXTREMITES: Equal pulses bilaterally. No peripheral clubbing, cyanosis or edema. No unilateral leg swelling. NEUROLOGIC: Alert and oriented to person, place and time. Moving all four extremities. 5/5 strength in all extremities. Normal speech. Steady gait. SKIN: Normal color. Warm and dry. No rashes or lesions. Procedures/MDM MEDICAL DECISION MAKING: Patient is a 33-year-old female, G3, P2, approximately 36 weeks , who presents the ER for concerns of a cough and sore throat x1 day. Patient was seen and evaluated by OB team prior to arrival to the ER. Patient was cleared by OB team prior to arrival to the ER. Vital signs were reviewed. Patient is afebrile. Patient was not hypoxic. Patient's initial blood pressure was noted to be elevated at 152/66. Physical exam findings were unremarkable. Lung exam was normal. Patient likely has a viral URI. Patient was advised she can take Robitussin which is [id number]-[id number]. Patient advised she can take Tylenol for her pain. Prior to discharge, patient's blood pressure was rechecked. At that time, patient's blood pressure was noted to be 161/72. Blood pressure was noted to be trending upwards. Review of the patient's medical records show the patient did have a urine dip completed on [employer] OPERATOR floor. Urine showed 1+ protein. Discussed patient's elevated blood pressure findings with her. Patient states at her previous visit with her BIOLOGICAL PLANT OPERATOR Dr. Jose Alfredo Ramirez, at [facility], she was told that her blood pressure was slightly elevated but she does not recall the value. I explained to the patient at length that I do have concerns of preeclampsia versus eclampsia at this time. Patient states that she is aware of these conditions and the risks associated with these conditions. I explained to the patient that she will need further blood tests as well as OB monitoring given her elevated blood pressure and I would contact the BIOLOGICAL PLANT OPERATOR team again to discuss these findings. Patient stated that she does not wish to be evaluated here again by the BIOLOGICAL PLANT OPERATOR here as her BIOLOGICAL PLANT OPERATOR is at [facility]. Patient stated that she wants to be under the care of her own BIOLOGICAL PLANT OPERATOR. Explained the risks versus benefits of patient's blood pressure findings in the setting of including the risk of permanent disability and/or . Patient states that she understands these risks and despite these risks she wishes to sign out against medical advice so she would like to be seen by her own BIOLOGICAL PLANT OPERATOR only. Patient states that she will contact her BIOLOGICAL PLANT OPERATOR immediately and she will have her will drive her to [facility] upon discharge from this facility. Patient signed AMA form. Form will be scanned into chart. Patient displayed full decision-making capacity. Patient was over the age of 18 and displayed no signs of altered level of consciousness and or alcohol/drug ingestion which would impair her judgment. The patient had the opportunity ask questions about her condition. Patient was informed she may return to this emergency department at any time. The case was reviewed and discussed with Dr. Brooke supervising physician. Departure Diagnosis: Primary Impression: Hypertension complicating in third trimester Additional Impression: Cough Condition: Serious Patient Instructions: High Blood Pressure (Hypertension) Additional Instructions: GO TO [facility] ER IMMEDIATELY. CONTACT DR. JOSE ALFREDO RAMIREZ YOUR OBGYN IMMEDIATELY. BALDOMERO PIÑA PA-C Dec 01, 2018 23:01
== END 2018-12-01 18:56 | disposition left against medical advice (07) ==
LOC: E/R 18:06
DX: O10.013 Pre-existing essential hypertension complicating pregnancy, third trimester (principal); R05 Cough; Z3A.36 36 weeks gestation of pregnancy
CPT/HCPCS: 99282